=== PATIENT | female | born 1970 | race Caucasian/White ===

== ENCOUNTER 2024-08-26 15:56 | Outpatient (CLI) | payer SELFPAY ==
--- OUTSIDE RECORDS SUMMARY | 2024-08-25 14:10 | XMS_ITS | Continuity of Care Document ---
Author Organization [facility] [employer] Luis mack [facility] Address [address] [place] [address] Assessment No assessment recorded. Plan of Treatment Reminders Order Date Submit Date Provider Last Modified By Organization Details Last Modified Time Details Appointments None recorded. Lab None recorded. Referral None recorded. Procedures colonoscopy screening (PROC) 2023 024 [email or web address] Not available 11:53:39 Surgeries None recorded. Imaging MAMMO, screening, digital, bilateral 2023 024 [email or web address] Not available 10:53:52 Medication Orders None recorded. Patient TargetsNo targets recorded. Patient Instructions Encounter Date Encounter Id Patient Instructions Last Modified By Organization Details Last Modified Time 06/16/2024 [id number] mammogram: about this test aries Not available 06/16/2024 14:38:07 Reason for Referral None Reported. Problems Name Problem SNOMED Code Status Onset Date Resolution Date Notes Provider Name and Address Organization Details Recorded Time Hyperlipidemi a 37355936 Active 2023 JOANNE LOPEZ [address] [place], [address], [facility] [employer] 17:07:10 Pelvic phleboliths 051895527 Active 2023 JOANNE LOPEZ [address] [place], [address], [facility] [employer] 16:11:21 Problem Notes None recorded. Medical Equipment None Reported. Allergies No known drug allergies Medications Name Sig Start Date Stop Date Status Note LastModified by Organization Details LastModified Time prednisone 10 mg tablet SEE SHEET INCLUDED. 6 DAY COURSE TAPERING DOSE EACH DAY BY 1 TAB TILL GONE. DAY 1 :6 TABS, DAY 2:5 TABS, DAY 3:4 TABS, DAY 4:3 TABS, DAY 5:2 TABS, DAY 6:1 TAB 06/16 completed Not Available Not Available Not Available acetaminoph en 500 mg tablet TAKE TWO TABLETS BY MOUTH EVERY EIGHT HOURS NEEDED active Not Available Not Available No t Available prednisone 10 mg tablets in a dose pack Take 1 dose pk by oral route. 12/07 completed Not Available Not Available Not Available diclofenac 1 % topical gel APPLY 2 GRAMS TO THE AFFECTED AREA(S) BY TOPICAL ROUTE 4 TIMES PER DAY active Not Available Not Available No t Available Vitals Date Recorded Body height Body mass index (BMI) Body weight Oxygen saturation Oxygen saturation in Arterial blood by Pulse oximetry Heart rate Systolic blood pressure Provider Name and Address Organization Details Last Updated DateTime 154.94 cm 29.1 kg/m2 92799.2 2 g 100 % 100 % 67 /min 112 mm[Hg] POPPY Ji [facility] [place], [address] [place], [place] - [employer] [facility] 14:12:51 Social History None recorded. Functional Status None recorded. Mental Status None recorded. Family History Relationship Description Onset Age of this Age Resolved Age Notes LastModified by Organization Details LastModified Time Mother Diabetes mellitus [email or web address] [email or web address] Not available 2023 14:16:42 Paternal Aunt Heart disease [email or web address] Not available 2023 14:17:09 Maternal Aunt Malignant neoplastic disease [email or web address] Not available 2023 14:17:17 Medical History No medical history recorded. Gynecological HistoryNo gynecological history recorded. Obstetrics History GPAL:G 0 P 0 0 0 0 Past Encounters Encounter ID Performer Location Encounter Start Date Encounter Closed Date Diagnosis/Indication Diagnosis SNOMED-CT Code Diagnosis ICD10 Code [id number] POPPY Ji [facility] [address] [place] [address] 06/16/2024 14:01:26 06/16/2024 14:46:00 Screening for malignant neoplasm of breast 507708938 Z12.31 Screening for malignant neoplasm of colon 951682061 Z12.11 Health Concerns Section Related Observation LastModified by Organization Detai ls LastModified Time None Recorded Concern Status LastModified by Organization Details LastModified Time None Recorded Payers Encounter Date Sequence Insurance Name Policy Number Policy Lyles Covered Member ID Lyles Member ID Guarantor Name 06/16/2024 SLIDING FEE SCHEDULE - DISCOUNT Linsey Johnson Notes Date Note Type Note Provider Name and Address Organization Details Recorded Time text/html Pt here today for routine WWE through Rudi programFirst visit with this provider Last pap smear: 4 years aoghx of total hysterectomy in 2020 approximatelyVaginal sxs reported today? noLast Menstrual period: 3 years ago prior to having hysterectomySexual concerns: none Lab mammogram: March 2023, WNLBreast concerns today: NoneFH breast Ca: Denies Preventative care- DM screen: normal blood glucose in April 2024- Cholesterol screen: February 2023, elevated cholesterol. No statin. Pt has worked on dietary measures to try and address- Colon ca screen: had FOBT last month but never received results which were reviewed today and were POSITIVE POPPY Ji [address] [place], [address], [facility] - [facility] 06/16/2024 14:38:18 OBGyn Episode No OBEpisode recorded.
--- NOTE | 2024-08-26 16:20 | CRLHL7_ITS ---
For Patients: As a result of the Century Cures Act, medical imaging exams and procedure reports are released immediately into your electronic medical record. You may view this report before your referring provider. If you have questions, please contact your health care provider. BILATERAL SCREENING MAMMOGRAM WITH COMPUTER-AIDED DETECTION AND TOMOSYNTHESIS TECHNIQUE: CC and MLO views were obtained. These mammographic images have been obtained using full-field digital technique. These mammographic images were interpreted with the benefit of computer-aided detection. Breast Tomosynthesis was used in this interpretation. COMPARISON FILM: 03/21/23, 08/21/18 (diagnostic), 08/13/18. FINDINGS: There are scattered areas of fibroglandular density IMPRESSION: There is no radiographic evidence for malignancy. ASSESSMENT: BI-RADS Category 2: Benign RECOMMENDATION: Routine screening mammogram in 1 year. A lay language report of this examination will be provided to the patient. Nathan Nettles M.D. Diagnostic Radiologist [email or web address] [email or web address]/cassi Transcribed: 4:43 p.david ye/Dictated by: Nathan Nettles MD @ 08/27/2024 11:05:00 AM (Electronically Signed)
== END 2024-08-26 15:57 | disposition home or self-care (01) ==
LOC: MAMMO 15:56
PROVIDERS: PCP Family Medicine; Visit Provider Nurse Practitioner Family
DX: Z12.31 Encounter for screening mammogram for malignant neoplasm of breast (principal)
CPT/HCPCS: 77063; 77067